=== PATIENT | male | born 1985 | race Caucasian/White ===

== ENCOUNTER 2020-08-11 08:34 | Emergency (ER) | payer MEDICAID ==
[~2020-08-11] VITALS: Ht 172.7 cm; Wt 75.0 kg
[~2020-08-11 08:34] MED LIST: NO HOME MEDS
[2020-08-11 08:39] VITALS: BP 123/93
[2020-08-11] MEDS ORDERED: PENI500T2 PO (09:03)
== END 2020-08-11 09:20 | disposition home or self-care (01) ==
LOC: ER 08:35
DX: K02.9 Dental caries, unspecified (principal); F17.200 Nicotine dependence, unspecified, uncomplicated; F12.90 Cannabis use, unspecified, uncomplicated; F15.90 Other stimulant use, unspecified, uncomplicated; Z86.14 Personal history of Methicillin resistant Staphylococcus aureus infection; Z79.2 Long term (current) use of antibiotics
CPT/HCPCS: 99283